=== PATIENT | female | born 1955 | race African-American/Black ===

== ENCOUNTER 2024-12-10 13:24 | Emergency (ER) | payer SELFPAY ==
[~2024-12-10] VITALS: Ht 154.9 cm; Wt 109.0 kg
[2024-12-10 13:28] VITALS: O2SAT 98
[2024-12-10 16:17] VITALS: BP 186/92; PULSE 100; RESP 20; TEMP 36.6; O2SAT 96
== END 2024-12-10 16:33 ==
LOC: ER 13:24
DX: S00.03XA Contusion of scalp, initial encounter (principal); E03.9 Hypothyroidism, unspecified; F20.9 Schizophrenia, unspecified; I67.82 Cerebral ischemia; J44.9 Chronic obstructive pulmonary disease, unspecified; W05.0XXA Fall from non-moving wheelchair, initial encounter; Y93.89 Activity, other specified; Y92.89 Other specified places as the place of occurrence of the external cause; Y99.8 Other external cause status
CPT/HCPCS: 70450; 99284; Z7610